=== PATIENT | female | born 1955 | race Two or more races ===

== ENCOUNTER 2017-06-12 14:25 | Day surgery (SDC) | payer OTHER ==
[~2017-06-12] VITALS: Ht 157.5 cm; Wt 75.7 kg
[2017-06-12] MEDS ORDERED: simvastatin (15:13)
[2017-06-12 15:15] VITALS: Ht 157.5 cm; Wt 75.7 kg
[2017-06-12] MEDS ORDERED: PROPOFOL 20 ML ONE (16:18)
[2017-06-12] MEDS ORDERED: MIDAZOLAM 1 MG/ML 2 ML INJ ONE (16:18)
[2017-06-12] MEDS ORDERED: FENTAnyl 50 MCG/ML VIAL ONE (16:18)
[2017-06-12 16:31] VITALS: BP 142/70; PULSE 75; RESP 20
--- NOTE | 2017-06-12 16:57 | OPPN ---
Date/Time of Note Date/Time of Note DATE: 06/12/17 TIME: 16:55 Operative Report Preoperative Diagnosis Screening Postoperative Diagnosis Sigmoid polyp was removed using biopsy forceps Internal hemorrhoids Operation/Procedure Performed Colonoscopy and biopsy Surgeon see signature line assignment desk assistant None Anesthesia: MAC Estimated blood loss: none Transfusion Required none Specimen Sigmoid polyp Grafts/Implants none Complications none SATISH SALAZAR MD Jun 12, 2017 16:57
--- NOTE | 2017-06-12 16:57 | OPPN ---
Date/Time of Note Date/Time of Note DATE: 06/12/17 TIME: 16:55 Operative Report Preoperative Diagnosis Screening Postoperative Diagnosis Sigmoid polyp was removed using biopsy forceps Internal hemorrhoids Operation/Procedure Performed Colonoscopy and biopsy Surgeon see signature line assistant program director None Anesthesia: MAC Estimated blood loss: none Transfusion Required none Specimen Sigmoid polyp Grafts/Implants none Complications none SATISH SALAZAR MD Jun 12, 2017 16:57
--- NOTE | 2017-06-12 16:57 | OPPN ---
Date/Time of Note Date/Time of Note DATE: 06/12/17 TIME: 16:55 Operative Report Preoperative Diagnosis Screening Postoperative Diagnosis Sigmoid polyp was removed using biopsy forceps Internal hemorrhoids Operation/Procedure Performed Colonoscopy and biopsy Surgeon see signature line assistant public defender None Anesthesia: MAC Estimated blood loss: none Transfusion Required none Specimen Sigmoid polyp Grafts/Implants none Complications none SATISH SALAZAR MD Jun 12, 2017 16:57
[2017-06-12 17:18] VITALS: BP 110/80; PULSE 75; RESP 14
--- NOTE | 2017-06-13 06:09 | GILP ---
DATE OF PROCEDURE: NAME OF PROCEDURES: Colonoscopy and biopsy. SURGEON: Satish Ferguson MD. PREOPERATIVE DIAGNOSIS: Screening colonoscopy. POSTOPERATIVE DIAGNOSES: 1. Colonoscopy all the way to the cecum. 2. Small sigmoid colon polyp was removed using the biopsy forceps. 3. Internal hemorrhoids. INDICATION FOR THE PROCEDURE: Ms. Kimmie Quintana is a 61-year-old female patient who was scheduled for screening colonoscopy. The procedure and possible complications were well explained to the patient. The patient understood and consented to the procedure. DESCRIPTION OF PROCEDURE: Under the influence of anesthesia, the colonoscope was carefully introduc ed in the rectum and under direct vision, it was advanced all the way to the cecum. FINDINGS: The patient had a small sigmoid colon polyp and it was removed using the biopsy forceps. She had internal hemorrhoids. She tolerated the procedure very well and there was no complication from the procedure. At the end of the procedure, she was awake with stable vital signs and she was discharged home to the care of h er family. IMPRESSION: 1. Colonoscopy all the way to the cecum. 2. Small sigmoid colon polyp was removed using the biopsy forceps. 3. Internal hemorrhoids. PLAN: Next screening colonoscopy in 5 years. Dictated By: SATISH AGUILA/ZION Conf#: [id number] DID#: [id number]
== END 2017-06-12 17:42 | disposition home or self-care (01) ==
LOC: GIL 14:25
PROVIDERS: ATTEND Internal Medicine Gastroenterology
DX: Z12.11 Encounter for screening for malignant neoplasm of colon (principal); D12.5 Benign neoplasm of sigmoid colon; K64.8 Other hemorrhoids; E78.5 Hyperlipidemia, unspecified
CPT/HCPCS: 45380; J2250; J3010